=== PATIENT | female | born 1970 | race Asian ===

== ENCOUNTER 2017-11-26 21:49 | Emergency (ER) | payer BC ==
[~2017-11-26] VITALS: Ht 157.5 cm; Wt 63.0 kg
[2017-11-26 22:30] VITALS: Ht 157.5 cm; Wt 63.0 kg
[2017-11-26 23:45] VITALS: BP 116/71
== END 2017-11-26 23:45 | disposition home or self-care (01) ==
LOC: ED 21:49
DX: J11.1 Influenza due to unidentified influenza virus with other respiratory manifestations (principal)
CPT/HCPCS: J1885; Q0162